=== PATIENT | male | born 1985 | race American Indian/Alaskan Native ===

== ENCOUNTER 2017-10-03 00:41 | Emergency (ER) | payer OTHER ==
[2017-10-03] MEDS ORDERED: TORADOL IM ONE (03:40)
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
[2017-10-03 05:24] VITALS: BP 131/76
== END 2017-10-03 04:06 | disposition home or self-care (01) ==
LOC: ED 00:41
DX: S39.012A Strain of muscle, fascia and tendon of lower back, initial encounter (principal); S29.012A Strain of muscle and tendon of back wall of thorax, initial encounter; V89.2XXA Person injured in unspecified motor-vehicle accident, traffic, initial encounter; Y93.89 Activity, other specified; Y92.89 Other specified places as the place of occurrence of the external cause; Y99.8 Other external cause status
CPT/HCPCS: 96372; 99282; J1885